=== PATIENT | male | born 1960 | race Caucasian/White ===

== ENCOUNTER 2016-09-03 08:45 | Inpatient (IN) | payer OTHER ==
--- NOTE | 2016-09-03 09:42 | ED ---
Extremity Problem HPI - General Chief complaint: Extremity Problem,Nontraumatic Stated complaint: left leg swelling, sent by [facility] Time Seen by Provider: 09/03/16 08:58 Source: patient, RN notes reviewed Mode of arrival: ambulatory Limitations: no limitations - History of Present Illness Initial comments: 56-year-old male present emergency Department chief complaint left leg swelling , redness. Patient states it started a few days ago has progressively worsened and rapid basis. Patient states 2 nights ago he did not feel well states that he then went to express bleeding or some redness to his leg and he was given antibiotics, steroids. Patient states he woke up today and has increased tremendously along with some streaking redness noted until his proximal thigh. Patient states that he felt that he may have just gotten into something but he does not know all of any new contacts to his leg. Patient denies any medication no recent ear infections no recent traveling. Patient has no history of blood clots denies chest pain or shortness of breath. - Related Data Allergies Allergy/AdvReac Type Severity Reaction Status Date / Time No Known Allergies Allergy Verified 09/03/16 08:53 Review of Systems ROS Statement: Those systems with pertinent positive or pertinent negative responses have been documented in the HPI. ROS Other: All systems not noted in ROS Statement are negative. Past Medical History Past Medical History: No Reported History History of Any Multi-Drug Resistant Organisms: None Reported Past Surgical History: Tonsillectomy Past Psychological History: No Psychological Hx Reported Smoking Status: Never smoker Past Alcohol Use History: Rare Past Drug Use History: None Reported General Exam Limitations: no limitations General appearance: alert, in no apparent distress Neck exam: Present: normal inspection. Absent: tenderness, meningismus, lymphadenopathy Respiratory exam: Present: normal lung sounds bilaterally. Absent: respiratory distress, wheezes, rales, rhonchi, stridor Cardiovascular Exam: Present: regular rate, normal rhythm, normal heart sounds. Absent: systolic murmur, diastolic murmur, rubs, gallop, clicks Extremities exam: Present: other (Left leg there is erythematous petechia type rash that is slightly blanchable, pedal pulses are equal bilaterally there is mild warmth with palpation over the area of rash. There is approximately 2 cm with of erythema that extends to the proximal groin on the left with no palpable lymph nodes or tenderness in the groin) Neurological exam: Present: reflexes normal. Absent: motor sensory deficit Skin exam: Present: warm, dry, intact, normal color. Absent: rash Course Vital Signs 09/03/16 09/03/16 08:49 09:25 Temperature 97.1 F L 98.1 F Pulse Rate 107 H 88 Respiratory 18 15 Rate Blood Pressure 130/95 114/65 O2 Sat by Pulse 95 97 Oximetry Medical Decision Making - Medical Decision Making 56-year-old male present emergency department for left leg swelling and redness. There is no evidence acute DVT. Patient does have acute renal failure left leg cellulitis with lymphangitis. Patient be placed on antibiotics and have nephrology consult. Case is discussed with Dr. Purcell. - Lab Data Result diagrams: 09/03/16 09:15 09/03/16 09:15 Lab Results 09/03/16 09/03/16 09/03/16 Range/Units 09:15 09:15 09:15 WBC 10.6 (3.8-10.6) k/uL RBC 4.97 (4.30-5.90) m/uL Hgb 16.1 (13.0-17.5) gm/dL Hct 46.4 (39.0-53.0) % MCV 93.4 (80.0-100.0) fL MCH 32.4 (25.0-35.0) pg MCHC 34.7 (31.0-37.0) g/dL RDW 14.2 (11.5-15.5) % Plt Count 192 (150-450) k/uL Neutrophils % 81 % Lymphocytes % 8 % Monocytes % 6 % Eosinophils % 0 % Basophils % 0 % Neutrophils # 8.6 H (1.3-7.7) k/uL Lymphocytes # 0.9 L (1.0-4.8) k/uL Monocytes # 0.7 (0-1.0) k/uL Eosinophils # 0.0 (0-0.7) k/uL Basophils # 0.0 (0-0.2) k/uL PT (9.0-12.0) sec INR (<1.2) APTT (22.0-30.0) sec Sodium 139 (137-145) mmol/L Potassium 4.2 (3.5-5.1) mmol/L Chloride 103 (98-107) mmol/L Carbon Dioxide 20 L (22-30) mmol/L Anion Gap 16 mmol/L BUN 34 H (9-20) mg/dL Creatinine 2.90 H (0.66-1.25) mg/dL Est GFR (MDRD) Af Amer 27 (>60 ml/min/1.73 sqM) Est GFR (MDRD) Non-Af 22 (>60 ml/min/1.73 sqM) Glucose 102 H (74-99) mg/dL Plasma Lactic Acid Dalton 1.4 (0.7-2.0) mmol/L Calcium 9.4 (8.4-10.2) mg/dL Total Bilirubin 0.7 (0.2-1.3) mg/dL AST 28 (17-59) U/L ALT 39 (21-72) U/L Alkaline Phosphatase 65 (38-126) U/L C-Reactive Protein 180.5 H (<10.0) mg/L Total Protein 7.1 (6.3-8.2) g/dL Albumin 4.1 (3.5-5.0) g/dL 09/03/16 Range/Units 09:15 WBC (3.8-10.6) k/uL RBC (4.30-5.90) m/uL Hgb (13.0-17.5) gm/dL Hct (39.0-53.0) % MCV (80.0-100.0) fL MCH (25.0-35.0) pg MCHC (31.0-37.0) g/dL RDW (11.5-15.5) % Plt Count (150-450) k/uL Neutrophils % % Lymphocytes % % Monocytes % % Eosinophils % % Basophils % % Neutrophils # (1.3-7.7) k/uL Lymphocytes # (1.0-4.8) k/uL Monocytes # (0-1.0) k/uL Eosinophils # (0-0.7) k/uL Basophils # (0-0.2) k/uL PT 10.1 (9.0-12.0) sec INR 1.0 (<1.2) APTT 25.8 (22.0-30.0) sec Sodium (137-145) mmol/L Potassium (3.5-5.1) mmol/L Chloride (98-107) mmol/L Carbon Dioxide (22-30) mmol/L Anion Gap mmol/L BUN (9-20) mg/dL Creatinine (0.66-1.25) mg/dL Est GFR (MDRD) Af Amer (>60 ml/min/1.73 sqM) Est GFR (MDRD) Non-Af (>60 ml/min/1.73 sqM) Glucose (74-99) mg/dL Plasma Lactic Acid Dalton (0.7-2.0) mmol/L Calcium (8.4-10.2) mg/dL Total Bilirubin (0.2-1.3) mg/dL AST (17-59) U/L ALT (21-72) U/L Alkaline Phosphatase (38-126) U/L C-Reactive Protein (<10.0) mg/L Total Protein (6.3-8.2) g/dL Albumin (3.5-5.0) g/dL Disposition Clinical Impression: Left leg cellulitis, Lymphangitis, Acute renal failure Disposition: ADMITTED IP TO THIS [facility] Condition: Fair Referrals: None,Stated [Primary Care Provider] - 1-2 days
[2016-09-03 09:51] LABS: Basophils % (A) 0 %; CH 32.1; CHCM 34.6; Eosinophils % (A) 0 %; HCT 46.4 % (39.0-53.0); HDW 2.58; HGB 16.1 gm/dL (13.0-17.5); Luc # (Auto) 0.43; Luc % (Auto) 4; Lymphocytes # (A) 0.9 k/uL (1.0-4.8); Lymphocytes % (A) 8 %; MCH 32.4 pg (25.0-35.0); MCHC 34.7 g/dL (31.0-37.0); MCV 93.4 fL (80.0-100.0); Mean Platelet Volume 8.8; Monocytes # (A) 0.7 k/uL (0-1.0); Monocytes % (A) 6 %; Neutrophils # (A) 8.6 k/uL (1.3-7.7); Neutrophils % (A) 81 %; RBC 4.97 m/uL (4.30-5.90); RDW 14.2 % (11.5-15.5); WBC 10.6 k/uL (3.8-10.6); WBC (Perox) 10.83
[2016-09-03 10:01] LABS: Calcium 9.4 mg/dL (8.4-10.2); Potassium 4.2 mmol/L (3.5-5.1); Total Bilirubin 0.7 mg/dL (0.2-1.3); Total Protein 7.1 g/dL (6.3-8.2)
[2016-09-03 10:04] LABS: Partial Thromboplastin Time 25.8 sec (22.0-30.0); Prothrombin Time 10.1 sec (9.0-12.0)
[2016-09-03 10:31] LABS: C Reactive Protein 180.5 mg/L (<10.0)
--- NOTE | 2016-09-03 11:04 | US ---
EXAMINATION TYPE: US venous doppler duplex LE LT DATE OF EXAM: 09/03/2016 10:49 AM COMPARISON: NONE CLINICAL HISTORY: Pain. SIDE PERFORMED: Left TECHNIQUE: The lower extremity deep venous system is examined utilizing real time linear array sonog hayes with graded compression, doppler sonography and color-flow sonography. VESSELS IMAGED: External Iliac Vein (EIV) Common Femoral Vein Deep Femoral Vein Greater Saphenous Vein * Femoral Vein Popliteal Vein Small Saphenous Vein * Proximal Calf Veins (* superficial vessels) Grayscale, color doppler, spectral doppler imaging performed of the deep veins of the lower extremity . There is normal flow, compressibility, vascular waveforms . Left Leg: appears negative for DVT IMPRESSION: No evidence for DVT.
[2016-09-03] MEDS ORDERED: ACETAMINOPHEN TAB 325 MG TAB PO PRN (11:13)
[2016-09-03] MEDS ORDERED: HYDROcodone/APAP 5-325MG 1 EACH TAB PO PRN (11:13)
[2016-09-03] MEDS ORDERED: IV VANCOMYCIN PER PHARMACY 1 EACH MISC MISCELLANE PRN (11:15)
[2016-09-03] MEDS ORDERED: VANCOMYCIN 2,000 MG in SODIUM CHLORIDE 0.9% 500 ML IVPB ONE (11:30)
[2016-09-03 16:43] LABS: Prothrombin Time 10.5 sec (9.0-12.0)
--- NOTE | 2016-09-03 17:06 | HP ---
CHIEF COMPLAINT: [id number]-old white male admitted with left leg swelling and redness and cough, congestion. He was brought to the hospital. He was given IV antibiotics and steroids and admitted with bilateral pneumonia due to increased cough, congestion, shortness of breath. He was also found to have acute cholecystitis on abdomen ultrasound. He has also been treated for some kind of foot infection. ALLERGIES: NEGATIVE. REVIEW OF SYSTEMS: Fourteen-point review of systems negative except for what is mentioned above. PAST MEDICAL HISTORY: 1. Diabetes mellitus. 2. Hypertension. 3. COPD. No drug use. Rare alcohol. PAST SURGICAL HISTORY: Tonsillectomy. PHYSICAL EXAM: Temperature 98. Pulse 88 to 107. Respiratory rate 15 to 18. Blood pressure is 130s to 114 over 60s to 90s. Oxygen 95% to 97% on room air. EXAMINATION OF HIS LEFT LEG: There is erythema. There is a petechiae type rash, slightly ( ) pulses are equal. ( ) erythema is possible ( ) on the left with no lymph node, tenderness. Skin otherwise is normal. BUN is 34, creatinine 2.90. ASSESSMENT: 1. Acute leg swelling and cellulitis. DVT is ruled out. 2. Acute renal failure. PLAN: Continue with IV antibiotics, fluid rehydration. Possible prerenal component. Await renal physician's recommendations. MTDD
[2016-09-03 18:38] LABS: Hemoglobin A1C 5.6 % (4.2-6.1)
--- NOTE | 2016-09-04 09:04 | US ---
EXAMINATION TYPE: US renals and bladder DATE OF EXAM: 09/04/2016 COMPARISON: NONE CLINICAL HISTORY: renal insufficiency. Renal insufficiency EXAM MEASUREMENTS: Right Kidney: 12.0 x 5.5 x 4.9 cm Left Kidney: 11.2 x 5.1 x 5.0 cm Right Kidney: 0.7cm echogenic focus midpole Left Kidney: 1.9 x 3.0cm hypoechoic area inferior pole, 1.9cm hypoechoic area superior pole Bladder: not fully distended There is no evidence for hydronephrosis at this point in time. IMPRESSION: 1 echogenic focus right kidney may reflect a nonobstructing calculus. 2. Isoechoic lesions of the left kidney may reflect cysts.
[2016-09-04 09:19] LABS: Basophils % (A) 0 %; CH 31.8; CHCM 34.4; Eosinophils # (A) 0.1 k/uL (0-0.7); Eosinophils % (A) 1 %; HCT 45.2 % (39.0-53.0); HGB 15.2 gm/dL (13.0-17.5); Luc # (Auto) 0.29; Luc % (Auto) 3; Lymphocytes # (A) 1.2 k/uL (1.0-4.8); Lymphocytes % (A) 13 %; MCH 31.4 pg (25.0-35.0); MCHC 33.7 g/dL (31.0-37.0); MCV 93.1 fL (80.0-100.0); Mean Platelet Volume 8.5; Monocytes # (A) 0.6 k/uL (0-1.0); Monocytes % (A) 6 %; Neutrophils # (A) 7.1 k/uL (1.3-7.7); Neutrophils % (A) 77 %; RBC 4.85 m/uL (4.30-5.90); RDW 14.1 % (11.5-15.5); WBC 9.3 k/uL (3.8-10.6); WBC (Perox) 8.98
[2016-09-04 09:39] LABS: Potassium 4.1 mmol/L (3.5-5.1); Total Bilirubin 0.9 mg/dL (0.2-1.3); Total Protein 6.6 g/dL (6.3-8.2)
[2016-09-04] MEDS: SODIUM CHLORIDE 0.9% 1,000 ML IV SCH (11:35)
--- NOTE | 2016-09-04 11:41 | XR ---
EXAMINATION TYPE: XR chest 1V DATE OF EXAM: 09/04/2016 CLINICAL HISTORY: Cough TECHNIQUE: Single frontal view of the chest is obtained. COMPARISON: None FINDINGS: There is no focal air space opacity, pleural effusion, or pneumothorax seen. The cardiac silhouette size is within normal limits. The osseous structures are intact. IMPRESSION: No acute process.
[2016-09-04] MEDS ORDERED: VANCOMYCIN 2,000 MG in SODIUM CHLORIDE 0.9% 500 ML IVPB ONE (12:00)
--- NOTE | 2016-09-04 12:28 | P.GSCN ---
History of Present Illness History of present illness: 56-year-old white male, history of leg comfort and redness of the lower extremity which was sudden in onset there is no history of trauma no history of insect bite Patient went to [facility] and patient was treated with by mouth antibiotic and steroid and sent home his symptoms got worse he came to the emergency room and has been admitted patient put on vancomycin patient also has a creatinine of 2.5 and began of 34 patient is been seen by the nephrology Medical historyof diabetes hypertension Neck supple no bruit appreciated chest clear first and second sound normal Abdomen soft nontender Vascular examination brachial radial femoral dorsal pedis palpable left lower extremity has a redness and tenderness no ischemic ulceration noted Plan is patient is an IV antibiotic we will use Silvadene cream for local application of left lower extremity and compression wrap wrap with leg elevation we'll follow with you Past Medical History Past Medical History: No Reported History Additional Past Medical History / Comment(s): SINUSITIS History of Any Multi-Drug Resistant Organisms: None Reported Past Surgical History: Tonsillectomy Past Anesthesia/Blood Transfusion Reactions: No Reported Reaction Past Psychological History: No Psychological Hx Reported Smoking Status: Never smoker Past Alcohol Use History: Rare Past Drug Use History: None Reported Medications and Allergies Home Medications Medication Instructions Recorded Confirmed Type Acetaminophen [Tylenol Extra 1,000 mg PO DAILY PRN 09/03/16 09/03/16 History Strength] Levofloxacin [Levaquin] 500 mg PO DAILY 09/03/16 09/03/16 History predniSONE 10 mg PO DAILY 09/03/16 09/03/16 History Allergies Allergy/AdvReac Type Severity Reaction Status Date / Time No Known Allergies Allergy Verified 09/03/16 11:35 Surgical - Exam Vital Signs Temp Pulse Resp BP Pulse Ox 97.1 F L 107 H 18 130/95 95 09/03/16 08:49 09/03/16 08:49 09/03/16 08:49 09/03/16 08:49 09/03/16 08:49 Results - Labs 09/04/16 09:06 09/04/16 09:06 Abnormal Lab Results - Last 24 Hours (Table) 09/04/16 Range/Units 09:06 BUN 29 H (9-20) mg/dL Creatinine 2.30 H (0.66-1.25) mg/dL Microbiology - Last 24 Hours (Table) 09/03/16 09:15 Blood Culture - Preliminary Blood No Growth after 24 hours Diabetes panel 09/03/16 09/04/16 Range/Units 16:12 09:06 Sodium 139 (137-145) mmol/L Potassium 4.1 (3.5-5.1) mmol/L Chloride 106 (98-107) mmol/L Carbon Dioxide 22 (22-30) mmol/L BUN 29 H (9-20) mg/dL Creatinine 2.30 H (0.66-1.25) mg/dL Glucose 86 (74-99) mg/dL Hemoglobin A1c 5.6 (4.2-6.1) % Calcium 9.0 (8.4-10.2) mg/dL AST 28 (17-59) U/L ALT 36 (21-72) U/L Alkaline Phosphatase 57 (38-126) U/L Total Protein 6.6 (6.3-8.2) g/dL Albumin 3.7 (3.5-5.0) g/dL Thyroid panel 09/03/16 Range/Units 16:12 TSH 1.270 (0.465-4.680) mIU/L Calcium panel 09/04/16 Range/Units 09:06 Calcium 9.0 (8.4-10.2) mg/dL Albumin 3.7 (3.5-5.0) g/dL Pituitary panel 09/03/16 09/04/16 Range/Units 16:12 09:06 Sodium 139 (137-145) mmol/L Potassium 4.1 (3.5-5.1) mmol/L Chloride 106 (98-107) mmol/L Carbon Dioxide 22 (22-30) mmol/L BUN 29 H (9-20) mg/dL Creatinine 2.30 H (0.66-1.25) mg/dL Glucose 86 (74-99) mg/dL Calcium 9.0 (8.4-10.2) mg/dL TSH 1.270 (0.465-4.680) mIU/L Adrenal panel 09/04/16 Range/Units 09:06 Sodium 139 (137-145) mmol/L Potassium 4.1 (3.5-5.1) mmol/L Chloride 106 (98-107) mmol/L Carbon Dioxide 22 (22-30) mmol/L BUN 29 H (9-20) mg/dL Creatinine 2.30 H (0.66-1.25) mg/dL Glucose 86 (74-99) mg/dL Calcium 9.0 (8.4-10.2) mg/dL Total Bilirubin 0.9 (0.2-1.3) mg/dL AST 28 (17-59) U/L ALT 36 (21-72) U/L Alkaline Phosphatase 57 (38-126) U/L Total Protein 6.6 (6.3-8.2) g/dL Albumin 3.7 (3.5-5.0) g/dL
--- NOTE | 2016-09-04 12:39 | CONS ---
REASON FOR CONSULT: Renal failure. HISTORY OF PRESENT ILLNESS: The patient is a 56 year old male who was admitted to the hospital with complaints of pain, redness and swelling in his left lower extremity which acutely started to worsen over the course of two to three days. The patient denies any prior history of kidney disease. He stated that his urine output was low prior to admission. His creatinine was noted to be 2.9 mg/ DL. We do not have any other labs available for comparison. The patient denies use of nonsteroid antiinflammatory agents prior to his hospitalization. He did have an ultrasound which did not show any evidence of obstruction. Social history is negative for smoking, drug abuse or alcohol abuse. PAST MEDICAL HISTORY: Hypertension is listed. The patient was not on any anti- hypertensive medications prior to admission. ALLERGIES: None. REVIEW OF SYSTEMS: As per HPI. Other systems negative. On examination, the patient is comfortable, awake, he is alert and oriented times three. Not in any acute distress. Blood pressure 133/72. Heart rate 103 per minute. He is afebrile. Examination of the heart S1, S2. Examination of the lungs bilateral breath sounds are heard. Abdomen is soft, nontender. Examination of the lower extremities shows redness and swelling in the left lower extremity which is marked and is not increasing from previous marking. Venous Doppler were negative for DVT. [employer] exam grossly intact. Labs shows sodium 139, potassium 4.1, BUN 29, serum creatinine 2.3, hemoglobin 15.2 gmDL. Vancomycin level was 8.3. ASSESSMENT: 1. Acute kidney injury appears to be acute tubular necrosis. The patient was not on any nonsteroidal antiinflammatory agents prior to admission. We will check a urinalysis. There is no evidence of obstructive uropathy. He is currently nonoliguric and his renal function seems to be improving. I will also start the patient on gentle IV hydration and repeat labs in the a.m. 2. Cellulitis in the left lower extremity, maintained on IV antibiotics. PLAN: Continue IV fluids, check urinalysis, repeat labs in the a.m. Continue to avoid nephrotoxic agents. Thank you for this consultation. We will follow this patient along with you. RAISA
[2016-09-04 14:05] LABS: Appearance,Urine Cloudy (Clear); Bacteria,Urine Rare /hpf; Bilirubin,Urine Negative (Negative); Glucose,Urine (UA) Negative (Negative); Ketones,Urine 1+ (Negative); Leukocyte Esterase,Urine Negative (Negative); Mucus,Urine Rare /hpf; Nitrite,Urine Negative (Negative); PH, Urine 5.5 (5.0-8.0); Particle Count 2762; Protein,Urine Trace (Negative); RBC,Urine 2 /hpf (0-5); Specific Gravity,Urine 1.011 (1.001-1.035); Squamous Epithelial Cell,Urine <1 /hpf (0-4); UA Billing (MACRO vs. MICRO) MICRO; Urobilinogen,Urine <2.0 mg/dL (<2.0); WBC,Urine 2 /hpf (0-5)
[2016-09-04] MEDS: ceFAZolin 2 GM in SODIUM CHLORIDE 0.9% 100 ML IVPB SCH ×2 (18:01→23:54)
[2016-09-05] MEDS: SODIUM CHLORIDE 0.9% 1,000 ML IV SCH ×2 (03:25→20:52)
[2016-09-05] MEDS: ceFAZolin 2 GM in SODIUM CHLORIDE 0.9% 100 ML IVPB SCH ×3 (08:35→23:26)
[2016-09-05 08:37] LABS: Calcium 8.9 mg/dL (8.4-10.2); Potassium 4.2 mmol/L (3.5-5.1)
--- NOTE | 2016-09-05 09:46 | CONS ---
DATE OF CONSULTATION: 09/04/2016 REASON FOR CONSULTATION: Left lower extremity cellulitis. HISTORY OF PRESENT ILLNESS: The patient is a 56 year old male who apparently did develop swelling and redness of his left leg on . The patient denied any current history of any trauma. No skin breakdown. No drainage. The patient noticed the swelling and the redness on the left leg for which the patient did go to [facility]. The patient did receive a dose of Rocephin and discharged home on oral Levaquin and Prednisone. The patient said he went to work the same night as he works midnights. The next morning, noticed the leg to be more swelling. More red. Pain is dull, 3 to 4 out of 10 and no radiation. No skin breakdown. She has some chills but no high grade fever. She went back to the urgent care. The patient has been evaluated and told patient needs to go to the hospital. The patient was evaluated by the ER physician. The patient did have lower extremity doppler that was negative for DVT. The patient was started on Vancomycin and I was asked to see the patient for further recommendations regarding antibiotic therapy. So the patient has been admitted to the hospital. No high grade fever has been noticed. The patient did have a normal white count of 10.6 and elevated creatinine of 2.90, though down to 2.30 today. REVIEW OF SYSTEMS Constitutional: Positive for weakness and some chills. EYES: No complaint. ENT: No complaint. Respiratory: No complaint. Cardiovascular: No complaint. Genitourinary: No complaint. Gastrointestinal: No complaint. Musculoskeletal: As per HPI. Integumentary: As per HPI. Psychological: No complaint. Endocrine: No complaint. Neurological: No complaint. Past medical history significant for no major illnesses. Past surgical history: Tonsillectomy. SOCIAL HISTORY: Denies history of smoking, drinking or drug use. FAMILY HISTORY: No pertinent findings were noticed. ALLERGIES: No known drug allergies. Medications currently include the patient is on: 1. Vancomycin, pharmacy to dose. 2. IV fluids. 3. Silvadene cream. 4. [place]. 5. Tylenol. On examination, blood pressure is 145/67 with a pulse of 63. Temperature 97.8. He is 99% on room air. General description is a middle age male lying in bed in no distress. No tachypnea or accessory muscles of respiration use. HEENT: Examination shows no pallor or scleral icterus. Oral mucous membranes dry. NECK: Trachea is central. No thyromegaly. LUNGS: Unlabored breathing. Clear to auscultation anteriorly. No wheeze or crackles. HEART: S1, S2 regular rate and rhythm. ABDOMEN: Soft, no tenderness. No guarding or rigidity. EXTREMITIES: Left leg with swelling and redness, slightly warm to touch. No skin breakdown. No evidence of athlete's foot. NEUROLOGICALLY: The patient is awake, alert and oriented times three. Mood and affect normal. LABS: Hemoglobin 15.1, white count 9.6 with a BUN 29, creatinine 2.30. Blood cultures were obtained which are currently pending. DIAGNOSTIC IMPRESSION AND PLAN: Patient with left leg lower extremity cellulitis with diffuse swelling and redness and rapid progression more likely pointing towards Streptococcal infection. The patient failing outpatient po Levaquin therapy, now admitted to the hospital and did have evidence of renal insufficiency and high risk of nephrotoxicity from Vancomycin. PLAN: 1. Discontinue the Vancomycin. 2. We will start the patient on Cefazolin two gm every eight hours. 3. Michael the area of the redness. 4. Pierre wraps from just above toes to just below the knee. 5. We will follow up on clinical condition and cultures to further adjust medication if needed. Thank you for this consultation. We will follow this patient along with you. RAISA
--- NOTE | 2016-09-05 11:03 | P.PN ---
Subjective Patient is seen in follow-up for acute kidney injury. Creatinine was 2.9 on admission and is down to 1.7 today. Patient's currently being treated for left lower extremity cellulitis. He denies any chest pain or shortness of breath. No vomiting or diarrhea. Oral intake is good. Admits to good urine output. Vital signs are stable. General: The patient appeared well nourished and normally developed. HEENT: Head exam is unremarkable. Neck is without jugular venous distension. LUNGS: Lungs are clear to auscultation and percussion. Breath sounds decreased. HEART: Rate and Rhythm are regular. First and second heart sounds normal. No murmurs, rubs or gallops. ABDOMEN: Abdominal exam reveals normal bowel sounds. Non-tender and non- distended. No evidence of peritonitis. EXTREMITITES: No clubbing, cyanosis, or edema. Objective - Vital Signs Vital signs: Vital Signs Temp 97.0 F L 09/05/16 07:00 Pulse 85 09/05/16 07:00 Resp 18 09/05/16 07:00 BP 142/74 09/05/16 07:00 Pulse Ox 95 09/05/16 07:00 Intake & Output 09/04/16 09/05/16 09/05/16 18:59 06:59 18:59 Intake Total 1000 Balance 1000 Intake: Intake, IV Titration 1000 Amount Sodium Chloride 0.9% 1, 300 000 ml @ 60 mls/hr IV . [id number] [facility] Rx#:[id number] Vancomycin 2,000 mg In 500 Sodium Chloride 0.9% 500 ml @ 167 mls/hr IVPB ONCE ONE Rx#:[id number] ceFAZolin 2 gm In Sodium 200 Chloride 0.9% 100 ml @ 100 mls/hr IVPB Q8HR [facility] Rx#:[id number] Other: # Voids 3 1 # Bowel Movements 1 - Labs CBC & Chem 7: 09/04/16 09:06 09/05/16 08:01 Labs: Abnormal Lab Results - Last 24 Hours (Table) 09/04/16 09/05/16 Range/Units Unknown 08:01 Carbon Dioxide 20 L (22-30) mmol/L BUN 21 H (9-20) mg/dL Creatinine 1.70 H (0.66-1.25) mg/dL Urine Protein Trace H (Negative) Urine Ketones 1+ H (Negative) Urine Blood Moderate H (Negative) Urine Bacteria Rare H (None) /hpf Urine Mucus Rare H (None) /hpf Microbiology - Last 24 Hours (Table) 09/03/16 09:15 Blood Culture - Preliminary Blood No Growth after 24 hours Assessment and Plan Plan: Assessment: #1. Nonoliguric acute kidney injury secondary to ATN from infectious process. Renal function improving with creatinine around 1.7 today. Urinalysis is quite benign. No evidence of obstructive uropathy. Next line #2. Left lower extremity cellulitis. #3. Metabolic acidosis secondary to IV fluids. Plan: Continue normal saline to be run at 60 mL an hour. Antibiotics per infectious disease recommendations. Encouraged oral intake. Repeat electrolyzes the morning.
--- NOTE | 2016-09-05 12:19 | PN ---
SUBJECTIVE: This is a 56-year-old white male with acute renal failure. Creatinine went to 2.9 to 2.3 overnight. Cellulitis is slightly improved of the right groin, left inner thigh, left lower leg. He feels much better from a clinical standpoint. His dehydration is improving with IV fluids. Remains on IV antibiotics at this time. CARDIOVASCULAR: S1, S2. Lung are clear. INTEGUMENT: As mentioned above. GI: Soft. ASSESSMENT: 1. Acute renal failure, improving. 2. Acute prerenal renal failure. 3. Acute cellulitis. Continue with IV antibiotics, IV fluids. Please see in the next 24 to 48 hours , recheck the electrolytes in the morning and creatinine and IV antibiotics. MTDD
--- NOTE | 2016-09-05 18:03 | P.PN ---
Progress Note - Text 56-year-old gentleman, history of cellulitis lower extremity no history of deep vein thrombosis patient IV antibiotic Silvadene cream with compression wrap cellulitis has not improve still there is a redness of the lower extremity we will have a dermatology consult if patient has vessel colitis versus cellulitis continue with present antibiotic and local wound care
[2016-09-06] MEDS: CLINDAMYCIN 900 MG in DEXTROSE 5% IN WATER 50 ML IVPB SCH ×6 (01:00→16:46)
[2016-09-06 07:38] VITALS: RESP 16
[2016-09-06] MEDS: ceFAZolin 2 GM in SODIUM CHLORIDE 0.9% 100 ML IVPB SCH ×3 (09:24→23:29)
[2016-09-06 09:25] LABS: Calcium 8.9 mg/dL (8.4-10.2); Potassium 3.9 mmol/L (3.5-5.1)
--- NOTE | 2016-09-06 09:45 | PN ---
DATE OF SERVICE: 09/05/2016 Reason for followup is left lower extremity cellulitis. INTERVAL HISTORY: The patient is afebrile. He is breathing comfortably. He denies significant pain to the left leg area. Overall drainage and swelling has slightly improved. Patient denies any significant chest pain, shortness of breath or cough. No abdominal pain or any diarrhea. On examination, his blood pressure is 131/81 with a pulse of 88, temperature is 97.2. He is 93% on room air. General description is a middle age male, lying in bed, in no distress. RESPIRATORY SYSTEM: Unlabored breathing. Clear to auscultation anteriorly. HEART: S1 and S2. Regular rate and rhythm. ABDOMEN: Soft. No tenderness. Left leg swelling has minimally improved. LABS: His BUN is 21. Creatinine is 1.70. DIAGNOSTIC IMPRESSION AND PLAN: Patient with left lower extremity cellulitis with diffuse swelling and redness likely streptococcal disease. There is slight improvement on cefazolin. Clindamycin has been added for added benefit. Continue with the cefazolin and evaluate the patient tomorrow. Continue supportive care. [facility]
--- NOTE | 2016-09-06 11:21 | P.PN ---
Subjective Patient is seen in follow-up for acute kidney injury. Creatinine was 2.9 on admission and is down to 1.6 today. Unclear as to what his baseline renal function is. Patient's currently being treated for left lower extremity cellulitis. States her edema is improving. He denies any chest pain or shortness of breath. No vomiting or diarrhea. Oral intake is good. Admits to good urine output. Vital signs are stable. General: The patient appeared well nourished and normally developed. HEENT: Head exam is unremarkable. Neck is without jugular venous distension. LUNGS: Lungs are clear to auscultation and percussion. Breath sounds decreased. HEART: Rate and Rhythm are regular. First and second heart sounds normal. No murmurs, rubs or gallops. ABDOMEN: Abdominal exam reveals normal bowel sounds. Non-tender and non- distended. No evidence of peritonitis. EXTREMITITES: No clubbing, cyanosis, or edema. Objective - Vital Signs Vital signs: Vital Signs Temp 97.0 F L 09/06/16 07:00 Pulse 89 09/06/16 07:00 Resp 16 09/06/16 07:00 BP 133/74 09/06/16 07:00 Pulse Ox 96 09/06/16 07:00 Intake & Output 09/05/16 09/06/16 09/06/16 18:59 06:59 18:59 Intake Total 100 Balance 100 Intake: Oral 100 Other: # Voids 3 1 - Labs CBC & Chem 7: 09/04/16 09:06 09/06/16 08:45 Labs: Abnormal Lab Results - Last 24 Hours (Table) 09/06/16 Range/Units 08:45 Chloride 108 H (98-107) mmol/L Creatinine 1.61 H (0.66-1.25) mg/dL Microbiology - Last 24 Hours (Table) 09/03/16 09:15 Blood Culture - Preliminary Blood No Growth after 48 hours Assessment and Plan Plan: Assessment: #1. Nonoliguric acute kidney injury secondary to ATN from infectious process. Renal function improving with creatinine at 1.6 today. Urinalysis is quite benign. No evidence of obstructive uropathy. #2. Left lower extremity cellulitis. #3. Metabolic acidosis secondary to IV fluids. Improving. Plan: Continue normal saline to be run at 60 mL an hour. Antibiotics per infectious disease recommendations. Encouraged oral intake. Repeat electrolyzes the morning.
--- NOTE | 2016-09-06 11:46 | PN ---
SUBJECTIVE: A 56-year-old white male with left leg cellulitis, possible vasculitis of the left lower leg. Patient continues on IV antibiotics, renal insufficiency is improved from 2.7 to 2.3 now down to 1.75. CARDIOVASCULAR: S1, S2. Lungs are clear. GI is soft. PSYCH: Fair mood and affect. He has a chronic cough secondary to ( ), he wants no treatment for. Integument shows left leg redness, streaking up to the middle inner groin down to the knee and the lower leg shows palpable purpura. ASSESSMENT: 1. Lymphadenitis, left leg cellulitis. 2. Acute on chronic renal failure improving, continue with IV cefazolin. 3. Prerenal renal failure, improving. Please see further orders. MTDD
--- NOTE | 2016-09-06 14:30 | P.PN ---
Progress Note - Text 56 old white male, patient came with cellulitis of left lower extremity patient is on IV antibiotic and we started her on Silvadene cream today swelling and redness is less and patient is not in pain plan is continue with the local wound care and IV antibiotic patient is improving
[2016-09-06] MEDS: SODIUM CHLORIDE 0.9% 1,000 ML IV SCH (16:45)
--- NOTE | 2016-09-06 18:34 | PN ---
DATE OF SERVICE: 09/06/16 REASON FOR FOLLOW UP: Left lower extremity cellulitis. INTERVAL HISTORY: The patient is afebrile. He is feeling better. Left leg swelling and redness has improved compared to yesterday. There is no significant pain. The patient denies significant chest pain, shortness of breath, very minimal cough. No abdominal pain or any diarrhea. On examination, blood pressure 133/74, pulse 80, temperature 97, he is 96% on room air. General description is a middle age male lying in the bed, in no distress. Respiratory: Unlabored breathing. Clear to auscultation anteriorly. Heart: S1, S2 regular rate and rhythm. Abdomen soft, no tenderness. Left leg overall swelling and redness has improved. Labs: BUN 16, creatinine 1.61. DIAGNOSTIC IMPRESSION AND PLAN: 1. Patient with acute left lower extremity cellulitis with diffuse swelling and redness, likely streptococcal disease, did show overall improvement. Clindamycin will be continued. Reevaluate the patient tomorrow to determine discharge antibiotics. 2. Continue supportive care. RAISA
[2016-09-07] MEDS: CLINDAMYCIN 900 MG in DEXTROSE 5% IN WATER 50 ML IVPB SCH ×8 (00:51→23:14)
[2016-09-07] MEDS: SODIUM CHLORIDE 0.9% 1,000 ML IV SCH (08:39)
[2016-09-07] MEDS: ceFAZolin 2 GM in SODIUM CHLORIDE 0.9% 100 ML IVPB SCH ×2 (10:05→18:11)
[2016-09-07 10:56] LABS: Calcium 8.7 mg/dL (8.4-10.2); Potassium 4.4 mmol/L (3.5-5.1); Total Bilirubin 0.4 mg/dL (0.2-1.3); Total Protein 5.7 g/dL (6.3-8.2)
--- NOTE | 2016-09-07 11:10 | P.PN ---
Subjective Patient is seen in follow-up for acute kidney injury. Creatinine was 2.9 on admission and was down to 1.6 as of yesterday. Unclear as to what his baseline renal function is. Patient's currently being treated for left lower extremity cellulitis. States erythema is improving. He denies any chest pain or shortness of breath. No vomiting or diarrhea. Oral intake is good. Admits to good urine output. No active complaints at this time. Vital signs are stable. General: The patient appeared well nourished and normally developed. HEENT: Head exam is unremarkable. Neck is without jugular venous distension. LUNGS: Lungs are clear to auscultation and percussion. Breath sounds decreased. HEART: Rate and Rhythm are regular. First and second heart sounds normal. No murmurs, rubs or gallops. ABDOMEN: Abdominal exam reveals normal bowel sounds. Non-tender and non- distended. No evidence of peritonitis. EXTREMITITES: No clubbing, cyanosis, or edema. Objective - Vital Signs Vital signs: Vital Signs Temp 97.2 F L 09/07/16 07:00 Pulse 82 09/07/16 07:00 Resp 16 09/07/16 07:00 BP 161/90 09/07/16 07:00 Pulse Ox 96 09/07/16 07:00 Intake & Output 09/06/16 09/07/16 09/07/16 18:59 06:59 18:59 Intake Total 600 Balance 600 Intake: Oral 600 Other: # Voids 1 1 - Labs CBC & Chem 7: 09/04/16 09:06 09/06/16 08:45 Labs: Microbiology - Last 24 Hours (Table) 09/03/16 09:15 Blood Culture - Preliminary Blood No Growth after 72 hours Assessment and Plan Plan: Assessment: #1. Nonoliguric acute kidney injury secondary to ATN from infectious process. Renal function improving with creatinine at 1.6 as of yesterday. Urinalysis is quite benign. No evidence of obstructive uropathy. #2. Left lower extremity cellulitis. #3. Metabolic acidosis secondary to IV fluids. Improving. Plan: Hep-Lock IV fluids. Antibiotics per infectious disease recommendations. Encouraged oral intake. Repeat electrolytes the morning.
--- NOTE | 2016-09-07 11:28 | PN ---
SUBJECTIVE: This is a 56-year-old white male with cellulitis of the left leg, lymphangitis and acute renal failure. Creatinine is down to 1.7 from 2.3. CARDIOVASCULAR: S1/S2. LUNGS: Clear. INTEGUMENT: Shows left inner thigh redness and swelling with decreasing, left lower leg redness and swelling has improved. ASSESSMENT: 1. Cellulitis, left leg. 2. Lymphangitis. 3. Acute renal failure. All improving clinically. Continue with IV Kefzol 500 mg q8, fluid rehydration. Possible discharge home in the next 48 hours. MTDD
--- NOTE | 2016-09-07 20:04 | PN ---
DATE OF SERVICE: 09/07/2016 REASON FOR FOLLOWUP: Left lower extremity cellulitis. INTERVAL HISTORY: The patient is afebrile. He is feeling better. Left leg swelling and redness as well as pain have improved compared to yesterday. The patient denies significant chest pain. No shortness of breath or cough and no abdominal pain or any diarrhea. On examination, blood pressure is 161/90 with a pulse of 82, temperature 97.2. He is 96% on room air. General description is a middle-aged male lying bed in no distress. RESPIRATORY SYSTEM: Unlabored breathing. Clear to auscultation anteriorly. HEART: S1, S2. Regular rate and rhythm. ABDOMEN: Soft. No tenderness. LEFT LEG: Overall swelling and redness have improved. LABS: BUN of 14 with a creatinine 1.64. DIAGNOSTIC IMPRESSION AND PLAN: Patient with acute left lower extremity cellulitis with diffuse swelling and redness, likely streptococcal disease. Patient seems to be showing clinical improvement slowly. He will continue on the cefazolin and clindamycin for another 24 hours, and if the patient does show overall improvement, hopefully he will be able to finish therapy with oral antibiotics. Continue supportive care. RAISA
[2016-09-08] MEDS: ceFAZolin 2 GM in SODIUM CHLORIDE 0.9% 100 ML IVPB SCH ×4 (07:47→17:59)
[2016-09-08 08:02] VITALS: TEMP 97.3
[2016-09-08 08:48] LABS: Calcium 8.9 mg/dL (8.4-10.2); Potassium 4.4 mmol/L (3.5-5.1)
[2016-09-08] MEDS: CLINDAMYCIN 900 MG in DEXTROSE 5% IN WATER 50 ML IVPB SCH ×4 (08:54→17:19)
--- NOTE | 2016-09-08 10:18 | P.PN ---
Subjective Patient is seen in follow-up for acute kidney injury. Creatinine was 2.9 on admission and down to 1.47 today. Unclear as to what his baseline renal function is. Patient's currently being treated for left lower extremity cellulitis. States erythema is improving. He denies any chest pain or shortness of breath. No vomiting or diarrhea. Oral intake is good. Admits to good urine output. No active complaints at this time. Vital signs are stable. General: The patient appeared well nourished and normally developed. HEENT: Head exam is unremarkable. Neck is without jugular venous distension. LUNGS: Lungs are clear to auscultation and percussion. Breath sounds decreased. HEART: Rate and Rhythm are regular. First and second heart sounds normal. No murmurs, rubs or gallops. ABDOMEN: Abdominal exam reveals normal bowel sounds. Non-tender and non- distended. No evidence of peritonitis. EXTREMITITES: No clubbing, cyanosis, or edema. Objective - Vital Signs Vital signs: Vital Signs Temp 97.3 F L 09/08/16 07:00 Pulse 90 09/08/16 07:00 Resp 16 09/08/16 07:00 BP 161/88 09/08/16 07:00 Pulse Ox 94 L 09/08/16 07:00 Intake & Output 09/07/16 09/08/16 09/08/16 18:59 06:59 18:59 Intake Total 2400 200 Balance 2400 200 Intake: Oral 2400 200 Other: # Voids 2 1 - Labs CBC & Chem 7: 09/04/16 09:06 09/08/16 08:00 Labs: Abnormal Lab Results - Last 24 Hours (Table) 09/07/16 09/08/16 Range/Units 09:33 08:00 Creatinine 1.64 H 1.47 H (0.66-1.25) mg/dL Glucose 102 H (74-99) mg/dL Total Protein 5.7 L (6.3-8.2) g/dL Albumin 3.1 L (3.5-5.0) g/dL Microbiology - Last 24 Hours (Table) 09/03/16 09:15 Blood Culture - Preliminary Blood No Growth after 96 hours Assessment and Plan Plan: Assessment: #1. Nonoliguric acute kidney injury secondary to ATN from infectious process. Renal function improving with creatinine down to 1.47 today. Urinalysis is quite benign. No evidence of obstructive uropathy. #2. Left lower extremity cellulitis. #3. Metabolic acidosis secondary to IV fluids. Resolved. Plan: Remains off all IV fluids. Antibiotics per infectious disease recommendations. Encouraged oral intake. Stable to be discharged home from nephrology standpoint. Will need to follow- up as an outpatient in the next 2-3 weeks.
--- NOTE | 2016-09-08 11:52 | PN ---
SUBJECTIVE: A 56-year-old white male with left leg cellulitis, improving. No chest pain or shortness of breath. Has chronic cough due to allergies. Blood pressure 160/90. Temp 97.2. Pulse 70 to 82. O2, 96% on room air. LUNGS: Show clear. CARDIOVASCULAR: S1 and S2. ABDOMEN: Soft, nontender. EXTREMITIES: No cyanosis, clubbing or edema. Left lower ( ) extremity ( ) likely streptococcal. Slow clinical improvement. Continue cefazolin, clindamycin for 24 hours and then possibly switch to oral antibiotics and discharge home. MTDD
[2016-09-08 14:20] VITALS: BP 146/86; PULSE 91
--- NOTE | 2016-09-08 16:08 | PN ---
DATE OF SERVICE: 09/08/16 REASON FOR FOLLOW UP: Left lower extremity cellulitis. INTERVAL HISTORY: The patient is afebrile. Feeling better. Breathing comfortably. Denies significant chest pain. No shortness of breath or cough. No abdominal pain. no pain left leg area. On examination, blood pressure 146/86, pulse 91, temperature 97.3, she is 98% on room air. General description is an elderly male lying in the bed, in no distress. Respiratory: Unlabored breathing. Clear to auscultation anteirorly. Heart: S1, S2 regular rate and rhythm. Abdomen soft, no tenderness. Left leg swelling and redness has improved. LABS: BUN 14, creatinine 1.47. DIAGNOSTIC IMPRESSION AND PLAN: Patient with acute left lower extremity cellulitis with diffuse swelling and redness, likely streptococcal disease. The patient did show overall improvement , plan to finish therapy with po Keflex. Script has been sent to the pharmacy with outpatient follow-up. The patient needs compressive stockings to keep the swelling down. MTDD
== END 2016-09-08 20:00 | disposition home or self-care (01) | DRG 602 ==
LOC: EC 08:45 → 4MS4W 11:41
PROVIDERS: ADMIT Family Medicine; ATTEND Family Medicine
DX: L03.116 Cellulitis of left lower limb (principal); N17.0 Acute kidney failure with tubular necrosis; E87.2 Acidosis; E86.0 Dehydration; R68.83 Chills (without fever); B95.5 Unspecified streptococcus as the cause of diseases classified elsewhere; I88.9 Nonspecific lymphadenitis, unspecified; R23.3 Spontaneous ecchymoses; Z86.19 Personal history of other infectious and parasitic diseases; Z87.09 Personal history of other diseases of the respiratory system
CPT/HCPCS: 36415; 71010; 76770; 80048; 80053; 80202; 81001; 83036; 83605; 84443; 85025; 85610; 85730; 86038; 86140; 87040; 99285

== ENCOUNTER 2020-07-06 08:10 | Inpatient (IN) | payer OTHER ==
[2020-07-06] MEDS ORDERED: VANCOMYCIN IV PER PHARMACY 1 EACH MISC MISCELLANE PRN (08:36)
[2020-07-06] MEDS ORDERED: SODIUM CHLORIDE 0.9% 1,000 ML IV ONE ×2 (08:37→20:09)
[2020-07-06] MEDS ORDERED: cefTRIAXone IN SWFI 1,000 MG/10 ML SYRINGE IVP SCH (08:44)
--- NOTE | 2020-07-06 08:44 | ED ---
General Adult HPI - General Chief complaint: Skin/Abscess/Foreign Body Stated complaint: leg infection Time Seen by Provider: 07/06/20 08:19 Source: patient, RN notes reviewed, old records reviewed Mode of arrival: ambulatory Limitations: no limitations - History of Present Illness Initial comments: 59-year-old male with left leg pain, swelling and redness. 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 This reportedly progressed very rapidly. He denies fever. Denies chest pain or dyspnea. - Related Data Home Medications Medication Instructions Recorded Confirmed No Known Home Medications 07/06/20 07/06/20 Allergies Allergy/AdvReac Type Severity Reaction Status Date / Time Milk Containing Products AdvReac SINUS Verified 07/06/20 09:24 [Dairy] CONGESTION Review of Systems ROS Statement: Those systems with pertinent positive or pertinent negative responses have been documented in the HPI. ROS Other: All systems not noted in ROS Statement are negative. Past Medical History Past Medical History: No Reported History Additional Past Medical History / Comment(s): SINUSITIS, cellulitis left leg History of Any Multi-Drug Resistant Organisms: None Reported Past Surgical History: Tonsillectomy Past Anesthesia/Blood Transfusion Reactions: No Reported Reaction Past Psychological History: No Psychological Hx Reported Smoking Status: Never smoker Past Alcohol Use History: Rare Past Drug Use History: None Reported General Exam Limitations: no limitations General appearance: alert, in no apparent distress Head exam: Present: atraumatic, normocephalic Eye exam: Present: normal appearance, PERRL ENT exam: Present: normal exam Neck exam: Present: normal inspection. Absent: tenderness, meningismus Respiratory exam: Present: normal lung sounds bilaterally. Absent: respiratory distress, wheezes Cardiovascular Exam: Present: normal rhythm, tachycardia GI/Abdominal exam: Present: soft. Absent: distended, tenderness, guarding Extremities exam: Present: normal capillary refill, other (Large area anterior left lower leg, erythema, warmth, tenderness to palpation, no crepitus, no fluctuance. Surrounding petechiae.). Absent: calf tenderness Neurological exam: Present: alert, oriented X3, CN II-XII intact. Absent: motor sensory deficit Psychiatric exam: Present: normal affect, normal mood Skin exam: Present: warm, dry, erythema Course Vital Signs 05/24/21 05/24/21 05/24/21 08:12 08:30 09:32 Temperature 98.7 F Pulse Rate 146 H 132 H 122 H Respiratory 18 18 18 Rate Blood Pressure 143/102 114/70 133/93 O2 Sat by Pulse 96 96 97 Oximetry EKG Findings - EKG Comments: EKG Findings:: EKG: Sinus tachycardia, left atrial enlargement, rate of 145, OK interval 132, QRS duration 82, QTC [address] segment elevation. Medical Decision Making - Medical Decision Making 59-year-old male with a rapidly progressing skin soft tissue infection of the left lower leg. The border is demarcated with a skin marker. Patient has been started on ceftriaxone, vancomycin, and clindamycin in the emergency department. He has a mild leukocytosis of 12.9. Patient has CK D with baseline creatinine. His lactic acid is 3.1. I did discuss case both with Dr. Rutherford and Dr. Fredi ortega for infectious disease. Gen. surgery placed on consult. - Lab Data Result diagrams: 07/06/20 08:49 07/06/20 08:49 Lab Results 07/06/20 07/06/20 07/06/20 Range/Units 08:49 08:49 08:49 WBC 12.8 H (3.8-10.6) k/uL RBC 5.27 (4.30-5.90) m/uL Hgb 17.6 H (13.0-17.5) gm/dL Hct 50.5 (39.0-53.0) % MCV 95.8 (80.0-100.0) fL MCH 33.5 (25.0-35.0) pg MCHC 34.9 (31.0-37.0) g/dL RDW 13.0 (11.5-15.5) % Plt Count 184 (150-450) k/uL MPV 8.3 PT 10.7 (9.0-12.0) sec INR 1.0 (<1.2) APTT 22.7 (22.0-30.0) sec Sodium 135 L (137-145) mmol/L Potassium 4.1 (3.5-5.1) mmol/L Chloride 107 (98-107) mmol/L Carbon Dioxide 16 L (22-30) mmol/L Anion Gap 12 mmol/L BUN 16 (9-20) mg/dL Creatinine 1.74 H (0.66-1.25) mg/dL Est GFR (CKD-EPI)AfAm 48 (>60 ml/min/1.73 sqM) Est GFR (CKD-EPI)NonAf 41 (>60 ml/min/1.73 sqM) Glucose 144 H (74-99) mg/dL Calcium 9.5 (8.4-10.2) mg/dL Magnesium 1.4 L (1.6-2.3) mg/dL Total Bilirubin 1.4 H (0.2-1.3) mg/dL AST 49 (17-59) U/L ALT 44 (4-49) U/L Alkaline Phosphatase 71 (38-126) U/L Total Protein 7.0 (6.3-8.2) g/dL Albumin 4.3 (3.5-5.0) g/dL Disposition Clinical Impression: Erysipelas, Cellulitis, Left leg cellulitis Disposition: ADMITTED IP TO THIS [facility] Condition: Stable Is patient prescribed a controlled substance at d/c from ED?: No Referrals: None,Stated [Primary Care Provider] - 1-2 days Decision to Admit Reason: Admit from EC Decision Date: 07/06/20 Decision Time: 09:54
[2020-07-06] MEDS ORDERED: CLINDAMYCIN 900 MG in DEXTROSE 5% IN WATER 50 ML IVPB STA ×2 (08:45)
[2020-07-06] MEDS: SODIUM CHLORIDE 0.9% 1,000 ML IV SCH ×3 (08:46→21:27)
[2020-07-06] MEDS: cefTRIAXone IN SWFI 1,000 MG/10 ML SYRINGE IVP SCH (08:52)
[2020-07-06 09:04] LABS: Basophils % (A) 0 %; Eosinophils # (A) 0.1 k/uL (0-0.7); Eosinophils % (A) 1 %; HCT 50.5 % (39.0-53.0); HGB 17.6 gm/dL (13.0-17.5); Lymphocytes # (A) 0.3 k/uL (1.0-4.8); Lymphocytes % (A) 2 %; MCH 33.5 pg (25.0-35.0); MCHC 34.9 g/dL (31.0-37.0); MCV 95.8 fL (80.0-100.0); Mean Platelet Volume 8.3; Monocytes # (A) 0.6 k/uL (0-1.0); Monocytes % (A) 4 %; Neutrophils # (A) 11.7 k/uL (1.3-7.7); Neutrophils % (A) 92 %; Platelet Count 184 k/uL (150-450); RBC 5.27 m/uL (4.30-5.90); WBC 12.8 k/uL (3.8-10.6)
[2020-07-06] MEDS ORDERED: VANCOMYCIN 2,250 MG in SODIUM CHLORIDE 0.9% 500 ML 500 ML IVPB ONE (09:15)
[2020-07-06 09:16] LABS: Albumin 4.3 g/dL (3.5-5.0); Calcium 9.5 mg/dL (8.4-10.2); Magnesium 1.4 mg/dL (1.6-2.3); Potassium 4.1 mmol/L (3.5-5.1); Total Bilirubin 1.4 mg/dL (0.2-1.3)
[2020-07-06 09:22] LABS: Partial Thromboplastin Time 22.7 sec (22.0-30.0); Prothrombin Time 10.7 sec (9.0-12.0)
[2020-07-06] MEDS ORDERED: NALOXONE 0.4 MG/ML 1 ML VIAL IV PRN ×2 (09:39→12:14)
[2020-07-06] MEDS ORDERED: ACETAMINOPHEN TAB 325 MG TAB PO PRN (09:39)
[2020-07-06] MEDS ORDERED: MELATONIN 3 MG TABLET PO PRN (12:14)
[2020-07-06] MEDS ORDERED: traMADol 50 MG TAB PO PRN (12:14)
--- NOTE | 2020-07-06 12:40 | P.HPIM ---
History of Present Illness H&P Date: 07/06/20 Chief Complaint: LE redness, swelling 59-year-old man with medical history of chronic sinusitis, cellulitis of his lower extremity presented with lower extremity swelling as well as erythema. Patient says that he was fine this morning when he went to work, then noticed that his leg started to become red and swollen and tender. He said that previously when he had cellulitis is placed on oral antibiotics and it got worse over a few days. However, this time the swelling progressed rapidly over several hours to encompass his entire anterior valentin. Given the rapidity of the involvement, patient presented to the emergency room for further evaluation. Patient has no other complaints of fever, chills, nausea, vomiting, chest pain, dyspnea, cough, palpitations, syncope, presyncope, abdominal pain, diarrhea, constipation, dysuria, numbness/weakness of extremities. Area of infection is demarcated with surgical pen and appears to be receding. Patient was seen by infectious disease, initially received vancomycin, ceftriaxone, clindamycin, then was transitioned to cefazolin, clindamycin. Patient received IV fluids in the emergency room and heart rate went down from 140-113. Patient is saturating well on room air without tachypnea. Labs demonstrate mild leukocytosis , elevation of lactic acid to 3.1, which trended to 2.7 after fluids. Review of Systems All Systems reviewed and pertinent positives and negatives noted in HPI, all other symptoms are negative Past Medical History Past Medical History: No Reported History Additional Past Medical History / Comment(s): SINUSITIS, cellulitis left leg History of Any Multi-Drug Resistant Organisms: None Reported Past Surgical History: Tonsillectomy Past Anesthesia/Blood Transfusion Reactions: No Reported Reaction Past Psychological History: No Psychological Hx Reported Smoking Status: Never smoker Past Alcohol Use History: Rare Past Drug Use History: None Reported Medications and Allergies Home Medications Medication Instructions Recorded Confirmed Type No Known Home Medications 07/06/20 07/06/20 History Allergies Allergy/AdvReac Type Severity Reaction Status Date / Time Milk Containing Products AdvReac SINUS Verified 07/06/20 09:24 [Dairy] CONGESTION Physical Exam Osteopathic Statement: *. No significant issues noted on an osteopathic structural exam other than those noted in the History and Physical/Consult. Vitals: Vital Signs Temp Pulse Resp BP Pulse Ox 07/06/20 10:22 113 H 24 126/88 96 07/06/20 09:32 122 H 30 H 133/93 97 07/06/20 08:30 132 H 26 H 114/70 96 07/06/20 08:12 98.7 F 146 H 18 143/102 96 Intake and Output 07/05/20 07/06/20 07/06/20 22:59 06:59 14:59 Other: Weight 131.542 kg Gen: awake, alert HEENT: normocephalic, atraumatic, good hearing acuity, moist mucous membranes Resp: good air exchange, breathing comfortably with no accessory muscle use, right lower lobe crackles, no wheezing CVS: good distal perfusion x 4, tachycardic, regular rhythm, no murmurs GI: soft, NTTP, ND, probably bowel sounds : no SPT, no CVAT, alex catheter not present MSK: Bilateral pitting edema, no clubbing, erythema of the left anterior valentin, with tenderness to palpation in the left posterior calf, diminished pulse on the left side, nonpitting edema of the left side Neuro: non-focal, moving all extremities Psych: cooperative, euthymic mood Results CBC & Chem 7: 07/06/20 08:49 07/06/20 08:49 Labs: Abnormal Lab Results - Last 24 Hours (Table) 07/06/20 07/06/20 07/06/20 Range/Units 08:49 08:49 08:49 WBC 12.8 H (3.8-10.6) k/uL Hgb 17.6 H (13.0-17.5) gm/dL Neutrophils # 11.7 H (1.3-7.7) k/uL Lymphocytes # 0.3 L (1.0-4.8) k/uL Sodium 135 L (137-145) mmol/L Carbon Dioxide 16 L (22-30) mmol/L Creatinine 1.74 H (0.66-1.25) mg/dL Glucose 144 H (74-99) mg/dL Plasma Lactic Acid Dalton 3.1 H* (0.7-2.0) mmol/L Magnesium 1.4 L (1.6-2.3) mg/dL Total Bilirubin 1.4 H (0.2-1.3) mg/dL Assessment and Plan Assessment: Sepsis Left lower extremity cellulitis -Admit to inpatient, telemetry -ID consult, appreciate recommendations -Continue cefazolin, clindamycin -Follow blood cultures -Follow up CRP, procalcitonin -IV fluids -Bilateral lower extremity Doppler arterial to screen for PAD -Left lower extremity duplex venous to rule out DVT Bilateral lower extremity pitting edema Right lower lobe crackles -BNP, pending -Chest x-ray, pending -DuoNeb nebs when necessary DVT prophylaxis with heparin 3 times a day Patient is a full code
--- NOTE | 2020-07-06 12:46 | XR ---
EXAMINATION TYPE: XR chest 1V DATE OF EXAM: 07/06/2020 COMPARISON: 09/04/2016 HISTORY: Cough, shortness of breath TECHNIQUE: Single frontal view of the chest is obtained. FINDINGS: Multiple overlying leads. Low lung volumes. Heart size is enlarged. Mild crowding of the p ulmonary interstitial may represent low lung volumes versus mild pulmonary edema. Minimal patchy inte rstitial opacity at the right lung base may represent developing pneumonitis. Continued follow-up to resolution is recommended. No pleural effusion or pneumothorax. IMPRESSION: 1. Cardiomegaly. 2. Mild pulmonary interstitial prominence may represent low lung volumes versus mild edema. 3. Minimal patchy interstitial opacity at the right lung base may represent developing pneumonitis. C ontinued follow-up to resolution is recommended.
--- NOTE | 2020-07-06 13:37 | US ---
EXAMINATION TYPE: US venous doppler duplex LE LT DATE OF EXAM: 07/06/2020 1:24 PM COMPARISON: NONE CLINICAL HISTORY: r/o DVT. Left lower leg pain, swelling and redness SIDE PERFORMED: Left TECHNIQUE: The lower extremity deep venous system is examined utilizing real time linear array sonog hayes with graded compression, doppler sonography and color-flow sonography. VESSELS IMAGED: Common Femoral Vein Deep Femoral Vein Greater Saphenous Vein * Femoral Vein Popliteal Vein Small Saphenous Vein * Proximal Calf Veins (* superficial vessels) Left Leg: Appears negative for DVT There is normal flow, compressibility, vascular waveforms. IMPRESSION: No evident deep venous thrombosis at or central to the left knee
[2020-07-06] MEDS: CLINDAMYCIN 900 MG in DEXTROSE 5% IN WATER 50 ML IVPB SCH ×2 (15:46)
--- NOTE | 2020-07-06 16:58 | ECHOF ---
Referral Reason:Cardiomegaly MEASUREMENTS -------- HEIGHT: 185.4 cm WEIGHT: 131.5 kg BP: 150/97 IVSd: 1.5 cm (0.6 - 1.1) LVIDd: 5.0 cm (3.9 - 5.3) LVPWd: 1.3 cm (0.6 - 1.1) EDV(Teich): 117 ml IVSs: 2.0 cm LVIDs: 3.5 cm LVPWs: 1.8 cm %IVS Thck: 38 % ESV(Teich): 52 ml EF(Teich): 56 % %FS: 29 % SV(Teich): 65 ml LA Diam: 3.8 cm (2.7 - 3.8) RVIDd: 3.4 cm (< 3.3) Ao Diam: 3.5 cm (2.0 - 3.7) AV Cusp: 2.4 cm (1.5 - 2.6) EPSS: 0.9 cm MV E Wallace: 0.66 m/s MV DecT: 216 ms MV Dec George: 3.1 m/s MV A Wallace: 0.86 m/s MV E/A Ratio: 0.77 MV PHT: 63 ms AV Vmax: 0.93 m/s AV maxP.47 mmHg MV EF SLOPE: 80.48 mm/s (70 - 150) MV EXCURSION: 11.64 mm (> 18.000) FINDINGS -------- Resting tachycardia (HR>100bpm). This was a technically difficult study with suboptimal views. The left ventricular size is normal. There is moderate concentric left ventricular hypertrophy. O verall left ventricular systolic function is normal with, an EF between 55 - 60 %. The right ventricle is mildly enlarged. The right atrium is normal in size. 5.0mg of Lumason was utilized for enhancement of images Interatrial and interventricular septum intact. The aortic valve is trileaflet, and appears structurally normal. No aortic stenosis or regurgitation. There is trace to mild mitral regurgitation. The tricuspid valve appears structurally normal. Trace/mild (physiologic) pulmonic regurgitation. The aortic root size is normal. Normal inferior vena cava with normal inspiratory collapse consistent with estimated right atrial pre ssure of 5 mmHg. There is no pericardial effusion. CONCLUSIONS -------- 1. Resting tachycardia (HR>100bpm). 2. The left ventricular size is normal. 3. There is moderate concentric left ventricular hypertrophy. 4. Overall left ventricular systolic function is normal with, an EF between 55 - 60 %. 5. The right ventricle is mildly enlarged. 6. 5.0mg of Lumason was utilized for enhancement of images 7. The aortic valve is trileaflet, and appears structurally normal. No aortic stenosis or regurgitati on. 8. There is trace to mild mitral regurgitation. 9. Trace/mild (physiologic) pulmonic regurgitation. 10. There is no pericardial effusion. PAROLE DIRECTOR: ANILA Evangelista
[2020-07-06] MEDS: HEPARIN SODIUM,PORCINE/PF 5,000 UNIT/0.5 ML SYRINGE SQ SCH (17:45)
[2020-07-06] MEDS ORDERED: SODIUM CHLORIDE 0.9% 500 ML 500 ML IV ONE (20:46)
[2020-07-06] MEDS: MAGNESIUM SULFATE-D5W PMX 1 GM in DEXTROSE/WATER 1 100ML.BAG IVPB SCH ×2 (21:27→22:47)
[2020-07-07] MEDS: HEPARIN SODIUM,PORCINE/PF 5,000 UNIT/0.5 ML SYRINGE SQ SCH ×3 (00:03→16:46)
[2020-07-07] MEDS: CLINDAMYCIN 900 MG in DEXTROSE 5% IN WATER 50 ML IVPB SCH ×8 (00:37→22:31)
[2020-07-07] MEDS ORDERED: VANCOMYCIN 2,000 MG in SODIUM CHLORIDE 0.9% 500 ML 500 ML IVPB SCH (03:00)
--- NOTE | 2020-07-07 06:16 | CONS ---
CONSULTATION DATE OF SERVICE: 07/06/2020 REASON FOR CONSULTATION: Left lower extremity cellulitis. HISTORY OF PRESENT ILLNESS: The patient is a 59-year-old male with a past medical history significant for episode of left lower extremity cellulitis about 3 years ago. The patient presented to the [facility] ER for evaluation of lower extremity swelling and redness. Apparently, the patient's symptoms started the night before he presented to the hospital. The patient mentioning he did have some swelling to the left leg and subsequently noticed to rapid progression of redness to the left lower extremity. The patient has been complaining of some pain to the left leg to more of a dull aching, at times throbbing, 5 to 6/10 and no radiation. The patient is currently not having open wound or any drainage. The patient presented to the ER with these symptoms. On arrival to the ER, the patient was afebrile. He was slightly tachycardic. Patient did have elevated lactic acid. White count of 12.8, creatinine was mildly elevated at 1.74. The patient did have lower extremity Doppler that has been negative for DVT. The patient was started on vancomycin and did receive a dose of Rocephin. Infectious Disease was consulted for further management of antibiotic therapy for acute left lower extremity cellulitis. REVIEW OF SYSTEMS: Positive points have been mentioned in HPI. Rest of systems are negative. PAST MEDICAL HISTORY: Left lower extremity cellulitis and . PAST SURGICAL HISTORY: Tonsillectomy. SOCIAL HISTORY: Denies smoking. Occasionally drinks. No drug use. FAMILY HISTORY: No pertinent findings noticed. ALLERGIES: MILK CONTAINING PRODUCTS. MEDICATIONS: The patient is currently on Tylenol, vancomycin, Pharmacy to dose, heparin, magnesium, melatonin, Narcan, and Ultram. PHYSICAL EXAMINATION: VITAL SIGNS: Blood pressure is 163/99 with a pulse of 122, temperature 97.5. He is 98% on room air. GENERAL DESCRIPTION: A middle-aged male lying in bed in no distress. No tachypnea or accessory muscles of respiration use. HEENT: Examination shows no pallor or scleral icterus. Oral mucous membrane is dry. NECK: Trachea central, no thyromegaly. LUNGS: Unlabored breathing, clear to auscultation anteriorly. No wheeze or crackle. HEART: S1-S2, regular rate and rhythm. ABDOMEN: Soft, no tenderness. No guarding or rigidity. EXTREMITIES: Left lower extremity with diffuse swelling, redness, slightly warm to touch, currently with no blister formation. No open wounds or any drainage. NEUROLOGICAL: Patient is awake, alert, oriented times three. Mood and affect normal. LABS: BUN of 16, creatinine 1.74. Lactic acid 3.1, repeat is 2.7, hemoglobin 17, white count 12.8. Lower extremity Doppler was negative for DVT. DIAGNOSTIC IMPRESSION: Patient with acute left lower extremity cellulitis with rapid progression within 24 hours is highly suspicious for streptococcal cellulitis. The patient currently with no open wound or evidence of purulence or suspicious for MRSA or any gram-negative infection. PLAN: 1. Discontinue vancomycin. 2. Start the patient on cefazolin 2 gram and clindamycin 900 q.8 hours. 3. Michael the area of redness. 4. We will follow on clinical condition and culture to further adjust medication if needed. Thank you for this consultation. Will follow this patient along with you. MMODL / IJN: [id number] /
[2020-07-07 06:30] LABS: Basophils % (A) 0 %; Eosinophils % (A) 0 %; HCT 45.6 % (39.0-53.0); Lymphocytes # (A) 0.8 k/uL (1.0-4.8); Lymphocytes % (A) 5 %; MCH 32.1 pg (25.0-35.0); MCHC 32.9 g/dL (31.0-37.0); MCV 97.8 fL (80.0-100.0); Mean Platelet Volume 8.4; Monocytes # (A) 0.5 k/uL (0-1.0); Monocytes % (A) 3 %; Neutrophils # (A) 13.7 k/uL (1.3-7.7); Neutrophils % (A) 91 %; Platelet Count 142 k/uL (150-450); RBC 4.66 m/uL (4.30-5.90); RDW 13.9 % (11.5-15.5); WBC 15.2 k/uL (3.8-10.6)
--- NOTE | 2020-07-07 10:15 | P.GSCN ---
History of Present Illness Consult date: 07/07/20 History of present illness: 59-year-old male presented to the emergency department approximately 24 hours ago with complaints of redness around the left valentin. He states that the redness developed quickly over the span of approximately 2 hours. He states that at the same site, approximately 3 years ago, he had an episode of cellulitis that did require antibiotic therapy. He denies any fevers, chills, chest pain or shortness of breath. He complains of some mild tenderness at the site, however no significant pain. The area of cellulitic changes has been marked by the emergency department and after antibiotic therapy, does not appear to be progressing. Review of Systems All systems: negative Past Medical History Past Medical History: No Reported History Additional Past Medical History / Comment(s): SINUSITIS, cellulitis left leg History of Any Multi-Drug Resistant Organisms: None Reported Past Surgical History: Tonsillectomy Past Anesthesia/Blood Transfusion Reactions: No Reported Reaction Past Psychological History: No Psychological Hx Reported Smoking Status: Never smoker Past Alcohol Use History: Rare Past Drug Use History: None Reported Medications and Allergies Home Medications Medication Instructions Recorded Confirmed Type No Known Home Medications 07/06/20 07/06/20 History Allergies Allergy/AdvReac Type Severity Reaction Status Date / Time Milk Containing Products AdvReac SINUS Verified 07/06/20 09:24 [Dairy] CONGESTION Surgical - Exam Osteopathic Statement: *. No significant issues noted on an osteopathic structural exam other than those noted in the History and Physical/Consult. Vital Signs Temp Pulse Resp BP Pulse Ox 98.7 F 146 H 18 143/102 96 07/06/20 08:12 07/06/20 08:12 07/06/20 08:12 07/06/20 08:12 07/06/20 08:12 - General well nourished, no distress - Eyes PERRL - ENT no hearing loss - Neck trachea midline - Respiratory normal respiratory effort - Abdomen Soft, nontender, nondistended, no rebound, guarding - Integumentary Left lower extremity with cellulitic changes and warmth to touch, this area has been demarcated with a marker, +2 pitting edema of left lower extremity, no palpable fluctuance or induration - Psychiatric oriented to time, oriented to person, oriented to place Results - Labs 07/07/20 05:30 05/24/21 08:49 Abnormal Lab Results - Last 24 Hours (Table) 07/06/20 07/06/20 07/06/20 Range/Units 08:49 12:00 15:11 WBC (3.8-10.6) k/uL Plt Count (150-450) k/uL Neutrophils # 11.7 H (1.3-7.7) k/uL Lymphocytes # 0.3 L (1.0-4.8) k/uL Plasma Lactic Acid Dalton 2.7 H* 2.9 H* (0.7-2.0) mmol/L C-Reactive Protein (<1.0) mg/dL 07/06/20 07/06/20 07/07/20 Range/Units 17:05 18:41 05:30 WBC 15.2 H (3.8-10.6) k/uL Plt Count 142 L (150-450) k/uL Neutrophils # 13.7 H (1.3-7.7) k/uL Lymphocytes # 0.8 L (1.0-4.8) k/uL Plasma Lactic Acid Dalton 4.5 H* (0.7-2.0) mmol/L C-Reactive Protein 7.8 H (<1.0) mg/dL Assessment and Plan Plan: 59-year-old male with cellulitis of the left lower extremity. At this point, there is no palpable fluctuance or induration and there is no active drainage. I would recommend continuing antibiotics and continue evaluation of the cellulitic changes. If abscess forms, we'll discuss plan for incision and drainage, however at this time there does not appear to be any significant absce ss likely features. Imaging can also be considered based on evolution of the cellulitic area. We'll continue to provide recommendations based on the patient's clinical progress.
[2020-07-07] MEDS: SODIUM CHLORIDE 0.9% 1,000 ML IV SCH ×2 (10:22→16:47)
--- NOTE | 2020-07-07 10:33 | P.PN ---
Subjective Progress Note Date: 07/07/20 No new complaints today. Continues to have pain in the leg, however, this is improving. Heart rates are improving. Erythema has not gone past the demarcation. Patient is on cefazolin and clindamycin. Objective - Vital Signs Vital signs: Vital Signs Temp 99.6 F 07/07/20 02:00 Pulse 103 H 07/07/20 02:00 Resp 16 07/07/20 02:00 BP 137/83 07/07/20 02:00 Pulse Ox 98 07/06/20 20:00 Intake & Output 07/06/20 07/07/20 07/07/20 18:59 06:59 18:59 Intake Total 2560 Balance 2560 Weight 131.542 kg Intake: Intake, IV Titration 1560 Amount Sodium Chloride 0.9% 1, 1560 000 ml @ 130 mls/hr IV . Q7H42M [facility] Rx#:[id number] Oral 1000 Other: Voiding Method Toilet Urinal # Voids 6 - Exam Gen: awake, alert HEENT: normocephalic, atraumatic, good hearing acuity, moist mucous membranes Resp: good air exchange, breathing comfortably with no accessory muscle use, right lower lobe crackles, no wheezing CVS: good distal perfusion x 4, tachycardic, regular rhythm, no murmurs GI: soft, NTTP, ND, probably bowel sounds : no SPT, no CVAT, alex catheter not present MSK: Bilateral pitting edema, no clubbing, erythema of the left anterior vlaentin, with tenderness to palpation in the left posterior calf, diminished pulse on the left side, nonpitting edema of the left side Neuro: non-focal, moving all extremities Psych: cooperative, euthymic mood - Labs CBC & Chem 7: 07/07/20 05:30 07/06/20 08:49 Labs: Abnormal Lab Results - Last 24 Hours (Table) 07/06/20 07/06/20 07/06/20 Range/Units 12:00 15:11 17:05 WBC (3.8-10.6) k/uL Plt Count (150-450) k/uL Neutrophils # (1.3-7.7) k/uL Lymphocytes # (1.0-4.8) k/uL Plasma Lactic Acid Dalton 2.7 H* 2.9 H* (0.7-2.0) mmol/L C-Reactive Protein 7.8 H (<1.0) mg/dL 07/06/20 07/07/20 Range/Units 18:41 05:30 WBC 15.2 H (3.8-10.6) k/uL Plt Count 142 L (150-450) k/uL Neutrophils # 13.7 H (1.3-7.7) k/uL Lymphocytes # 0.8 L (1.0-4.8) k/uL Plasma Lactic Acid Dalton 4.5 H* (0.7-2.0) mmol/L C-Reactive Protein (<1.0) mg/dL Assessment and Plan Assessment: Sepsis Left lower extremity cellulitis -Admit to inpatient, telemetry -ID consult, appreciate recommendations -Continue cefazolin, clindamycin -Follow blood cultures, NGTD -Follow up CRP = 7.8, procalcitonin = pending -IV fluids -Bilateral lower extremity Doppler arterial to screen for PAD, pending -Left lower extremity duplex venous to rule out DVT, negative Bilateral lower extremity pitting edema Right lower lobe crackles -BNP, low -Chest x-ray, no congestion -DuoNeb nebs when necessary DVT prophylaxis with heparin 3 times a day Patient is a full code
--- NOTE | 2020-07-07 15:10 | PN ---
PROGRESS NOTE DATE OF SERVICE: 07/07/2020 REASON FOR FOLLOWUP: Left lower extremity cellulitis. INTERVAL HISTORY: The patient is currently afebrile. The patient is breathing comfortably. Patient denies having any chest pain or shortness of breath or cough. No abdominal pain or worsening pain to the left leg. Overall pain and discomfort has decreased. PHYSICAL EXAMINATION: Blood pressure 146/82 with a pulse of 102, temperature 98.9. He is 95% on room air. General description is a middle-aged male lying in bed in no distress. RESPIRATORY SYSTEM: Unlabored breathing, clear to auscultation anteriorly. HEART: S1, S2. Regular rate and rhythm. ABDOMEN: Soft, no tenderness. Left leg still has significant swelling and redness, though her redness has not crossed the lines LABS: Hemoglobin 15, white count 15.2. Blood culture has been negative so far. DIAGNOSTIC IMPRESSION AND PLAN: Patient with acute left lower extremity cellulitis in this patient seemed to have shown clinical improvement with cefazolin and to continue. We will apply Pierre wrap to the left leg to keep the swelling down . MMODL / IJN: [id number] /
[2020-07-07 15:48] LABS: African American GFR (CKD) 49.3 (60.0-200.0); Albumin 3.4 g/dL (3.80-4.90); Albumin/Globulin Ratio 1.7 (1.60-3.17); BUN/Creat Ratio 9.41 Ratio (12.00-20.00); Calcium 8.1 mg/dL (8.7-10.3); Magnesium 1.8 mg/dL (1.5-2.4); Non-African American GFR(CKD) 42.6 (60.0-200.0); Potassium 4.3 mmol/L (3.5-5.5); Total Bilirubin 0.8 mg/dL (0.2-1.2); Total Protein 5.4 g/dL (6.2-8.2)
[2020-07-07 16:54] LABS: Hemoglobin A1C 5.7 % (4.0-6.0)
[2020-07-08] MEDS: HEPARIN SODIUM,PORCINE/PF 5,000 UNIT/0.5 ML SYRINGE SQ SCH ×4 (00:22→23:02)
[2020-07-08] MEDS: SODIUM CHLORIDE 0.9% 1,000 ML IV SCH ×4 (00:22→21:16)
--- NOTE | 2020-07-08 09:57 | P.ARTDOP ---
Arterial Doppler LOWER EXTREMITY ARTERIAL DOPPLER: DATE OF SERVICE: 07/06/2020 Reason for study: Left leg cellulitis. Doppler waveforms: Multiphasic bilaterally throughout. Pulse volume recording: []. Pressure gradients: None except the toes on the left. Ankle-brachial indices: Greater than 1 bilaterally. Toe brachial indices: 0.95 on the right, 0.41 on the left Impression: Normal study proximally. There may be some distal disease on the left, but it is mild..
[2020-07-08] MEDS: CLINDAMYCIN 900 MG in DEXTROSE 5% IN WATER 50 ML IVPB SCH ×4 (10:37→15:29)
--- NOTE | 2020-07-08 12:28 | P.PN ---
Subjective Progress Note Date: 07/08/20 No new complaints. pain in leg is improving. Objective - Vital Signs Vital signs: Vital Signs Temp 98.3 F 07/08/20 04:43 Pulse 87 07/08/20 04:43 Resp 18 07/08/20 04:58 BP 144/95 07/08/20 04:43 Pulse Ox 95 07/08/20 04:58 Intake & Output 07/07/20 07/08/20 07/08/20 18:59 06:59 18:59 Intake Total 1170 Balance 1170 Intake: Intake, IV Titration 1170 Amount Sodium Chloride 0.9% 1, 1170 000 ml @ 130 mls/hr IV . Q7H42M [facility] Rx#:[id number] Other: Voiding Method Toilet Toilet Urinal Urinal # Voids 1 4 # Bowel Movements 1 - Exam Gen: awake, alert HEENT: normocephalic, atraumatic, good hearing acuity, moist mucous membranes Resp: good air exchange, breathing comfortably with no accessory muscle use, right lower lobe crackles, no wheezing CVS: good distal perfusion x 4, tachycardic, regular rhythm, no murmurs GI: soft, NTTP, ND, probably bowel sounds : no SPT, no CVAT, alex catheter not present MSK: Bilateral pitting edema, no clubbing, erythema of the left anterior valentin, with tenderness to palpation in the left posterior calf, diminished pulse on the left side, nonpitting edema of the left side Neuro: non-focal, moving all extremities Psych: cooperative, euthymic mood - Labs CBC & Chem 7: 07/07/20 05:30 07/07/20 05:30 Labs: Abnormal Lab Results - Last 24 Hours (Table) 07/07/20 Range/Units 05:30 Carbon Dioxide 19.0 L (21.6-31.8) mmol/L Anion Gap 13.00 H (4.00-12.00) mmol/L Creatinine 1.7 H (0.6-1.5) mg/dL Est GFR (CKD-EPI)AfAm 49.3 L (60.0-200.0) Est GFR (CKD-EPI)NonAf 42.6 L (60.0-200.0) BUN/Creatinine Ratio 9.41 L (12.00-20.00) Ratio Glucose 116 H (70-110) mg/dL Calcium 8.1 L (8.7-10.3) mg/dL Total Protein 5.4 L (6.2-8.2) g/dL Albumin 3.40 L (3.80-4.90) g/dL Microbiology - Last 24 Hours (Table) 07/06/20 08:51 Blood Culture - Preliminary Blood No Growth after 48 hours 07/06/20 08:49 Blood Culture - Preliminary Blood No Growth after 48 hours Assessment and Plan Assessment: Sepsis Left lower extremity cellulitis -Admit to inpatient, telemetry -ID consult, appreciate recommendations -Continue cefazolin, clindamycin -Follow blood cultures, NGTD -Follow up CRP = 7.8, procalcitonin = pending -IV fluids -Bilateral lower extremity Doppler arterial to screen for PAD, possibly mild disease in left lower extremity -Left lower extremity duplex venous to rule out DVT, negative Bilateral lower extremity pitting edema Right lower lobe crackles -BNP, low -Chest x-ray, no congestion -DuoNeb nebs when necessary DVT prophylaxis with heparin 3 times a day Patient is a full code
--- NOTE | 2020-07-08 19:10 | PN ---
PROGRESS NOTE DATE OF SERVICE: 07/08/2020 REASON FOR FOLLOWUP: Left lower extremity cellulitis. HISTORY OF PRESENT ILLNESS: The patient is currently afebrile. Patient is breathing comfortably. The patient denies having any chest pain. No shortness of breath. No cough. No abdominal pain or any worsening left lower extremity. PHYSICAL EXAMINATION: Blood pressure 138/81 with a pulse of 87, temperature 98.9. He is 95% on room air. General description is a middle-aged male lying in bed in no distress. Respiratory system: Unlabored breathing, clear to auscultation anteriorly. Heart: S1, S2. Regular rate and rhythm. ABDOMEN: Soft. No tenderness. Left leg swelling and redness has slightly decreased. LABS: No new labs have been obtained today. Blood culture so far negative. DIAGNOSTIC IMPRESSION AND PLAN: Patient with acute left lower extremity cellulitis. The patient, at this time, to continue cefazolin and clindamycin along with Pierre wrap to keep the swelling down and we will reevaluate the patient tomorrow. MMODL / IJN: [id number] /
[2020-07-09] MEDS: CLINDAMYCIN 900 MG in DEXTROSE 5% IN WATER 50 ML IVPB SCH ×8 (00:07→22:17)
[2020-07-09] MEDS: SODIUM CHLORIDE 0.9% 1,000 ML IV SCH (05:39)
[2020-07-09] MEDS: HEPARIN SODIUM,PORCINE/PF 5,000 UNIT/0.5 ML SYRINGE SQ SCH ×3 (09:59→23:34)
--- NOTE | 2020-07-09 14:07 | P.PN ---
Subjective Progress Note Date: 07/09/20 Patient seen and examined at bedside. States he has had improved pain in the left lower extremity and improved warmth. He has noticed decreased edema with decrease in IV fluids. Objective - Vital Signs Vital signs: Vital Signs Temp 98.3 F 07/09/20 12:23 Pulse 87 07/09/20 12:23 Resp 16 07/09/20 12:23 BP 150/90 07/09/20 12:23 Pulse Ox 94 L 07/09/20 12:23 Intake & Output 07/08/20 07/09/20 07/09/20 18:59 06:59 18:59 Intake Total 1450 940 Balance 1450 940 Intake: Intake, IV Titration 1450 940 Amount Clindamycin 900 mg In 50 50 Dextrose 5% in Water 50 ml @ 50 mls/hr IVPB Q8H [facility] Rx#:[id number] Sodium Chloride 0.9% 1, 1300 840 000 ml @ 130 mls/hr IV . Q7H42M [facility] Rx#:[id number] ceFAZolin 2 gm In Sodium 100 50 Chloride 0.9% 50 ml @ 100 mls/hr IVPB Q8HR [facility] Rx# :[id number] Other: Voiding Method Toilet Toilet Urinal Urinal - Gastrointestinal Gastrointestinal Comment(s): Soft, nontender, nondistended, no rebound, no guarding - Integumentary Integumentary Comment(s): Left lower extremity with 2+ pitting edema, erythema noted at the valentin mildly improved, warm to touch, no fluctuance or induration, no drainable palpable abscess - Musculoskeletal Musculoskeletal: Present: generalized weakness - Psychiatric Psychiatric: Present: A&O x's 3 - Labs CBC & Chem 7: 07/07/20 05:30 07/07/20 05:30 Labs: Microbiology - Last 24 Hours (Table) 07/06/20 08:49 Blood Culture - Preliminary Blood No Growth after 72 hours 07/06/20 08:51 Blood Culture - Preliminary Blood No Growth after 72 hours Assessment and Plan Plan: 59-year-old male with cellulitis of the left lower extremity. At this point, th ere is no palpable fluctuance or induration and there is no active drainage. There appears to be some improvement in the patient's pain and in erythema. There is no palpable abscess to drain. Continue with IV antibiotics and continue medical management.
--- NOTE | 2020-07-09 14:23 | XR ---
EXAMINATION TYPE: XR chest 2V DATE OF EXAM: 07/09/2020 COMPARISON: Chest x-ray 07/06/2020 HISTORY: Shortness of breath TECHNIQUE: Frontal and lateral views of the chest are obtained. FINDINGS: There is no focal air space opacity, pleural effusion, or pneumothorax seen. The cardiac silhouette size is within normal limits. The osseous structures are intact. There are overlying jen ds. There is a spinal curvature, thoracic spondylosis. IMPRESSION: No acute cardiopulmonary process.
--- NOTE | 2020-07-09 17:21 | P.PN ---
Subjective Progress Note Date: 07/09/20 No new complaints today. Pt says that his pain has improved despite there being some redness extending beyond the demarcation. Objective - Vital Signs Vital signs: Vital Signs Temp 98.3 F 07/09/20 12:23 Pulse 87 07/09/20 12:23 Resp 16 07/09/20 12:23 BP 150/90 07/09/20 12:23 Pulse Ox 94 L 07/09/20 12:23 Intake & Output 07/08/20 07/09/20 07/09/20 18:59 06:59 18:59 Intake Total 1450 940 Balance 1450 940 Intake: Intake, IV Titration 1450 940 Amount Clindamycin 900 mg In 50 50 Dextrose 5% in Water 50 ml @ 50 mls/hr IVPB Q8H [facility] Rx#:[id number] Sodium Chloride 0.9% 1, 1300 840 000 ml @ 130 mls/hr IV . Q7H42M [facility] Rx#:[id number] ceFAZolin 2 gm In Sodium 100 50 Chloride 0.9% 50 ml @ 100 mls/hr IVPB Q8HR [facility] Rx# :[id number] Other: Voiding Method Toilet Toilet Urinal Urinal - Exam Gen: awake, alert HEENT: normocephalic, atraumatic, good hearing acuity, moist mucous membranes Resp: good air exchange, breathing comfortably with no accessory muscle use, rig ht lower lobe crackles, no wheezing CVS: good distal perfusion x 4, tachycardic, regular rhythm, no murmurs GI: soft, NTTP, ND, probably bowel sounds : no SPT, no CVAT, alex catheter not present MSK: Bilateral pitting edema, no clubbing, erythema of the left anterior valentin, with tenderness to palpation in the left posterior calf, diminished pulse on the left side, nonpitting edema of the left side Neuro: non-focal, moving all extremities Psych: cooperative, euthymic mood - Labs CBC & Chem 7: 07/07/20 05:30 07/07/20 05:30 Labs: Microbiology - Last 24 Hours (Table) 07/06/20 08:49 Blood Culture - Preliminary Blood No Growth after 72 hours 07/06/20 08:51 Blood Culture - Preliminary Blood No Growth after 72 hours Assessment and Plan Assessment: Sepsis Left lower extremity cellulitis -Admit to inpatient, telemetry -ID consult, appreciate recommendations -Continue cefazolin, clindamycin -Follow blood cultures, NGTD -Follow up CRP = 7.8, procalcitonin = pending -IV fluids -Bilateral lower extremity Doppler arterial to screen for PAD, possibly mild disease in left lower extremity -Left lower extremity duplex venous to rule out DVT, negative Bilateral lower extremity pitting edema Right lower lobe crackles -BNP, low -Chest x-ray, no congestion -DuoNeb nebs when necessary DVT prophylaxis with heparin 3 times a day Patient is a full code
[2020-07-09 20:02] LABS: Glucose,Whole Blood 89 mg/dL (75-99)
[2020-07-09 20:10] VITALS: RESP 18
--- NOTE | 2020-07-10 04:04 | PN ---
PROGRESS NOTE DATE OF SERVICE: 07/09/2020 REASON FOR FOLLOWUP: Left lower extremity cellulitis. INTERVAL HISTORY: The patient is currently afebrile. The patient is breathing comfortably. The patient left leg swelling and discomfort has decreased intensity. The patient denies having any chest pain or cough. No abdominal pain. No diarrhea. PHYSICAL EXAMINATION: Blood pressure 164/98, pulse 80, temperature 98.4. He is 97% on room air. General description is a middle-aged male lying in bed in no distress. Respiratory system: Unlabored breathing, clear to auscultation anteriorly. Heart S1, S2. Regular rate and rhythm. Abdomen soft, no tenderness. Left leg redness has decreased intensity. LABS: No new labs have been obtained today. DIAGNOSTIC IMPRESSION AND PLAN: Patient with acute left lower extremity cellulitis with diffuse swelling and redness, likely streptococcal disease, covered with cefazolin. Continue for another 24 hours. Will repeat his CBC inflammatory markers tomorrow and continue supportive care. MMODL / IJN: [id number] /
[2020-07-10 07:08] LABS: Basophils % (A) 0 %; Eosinophils # (A) 0.2 k/uL (0-0.7); Eosinophils % (A) 4 %; HCT 41.2 % (39.0-53.0); HGB 14.4 gm/dL (13.0-17.5); Lymphocytes # (A) 0.9 k/uL (1.0-4.8); Lymphocytes % (A) 13 %; MCH 33.7 pg (25.0-35.0); MCHC 34.9 g/dL (31.0-37.0); MCV 96.5 fL (80.0-100.0); Mean Platelet Volume 8.8; Monocytes # (A) 0.5 k/uL (0-1.0); Monocytes % (A) 7 %; Neutrophils # (A) 4.8 k/uL (1.3-7.7); Neutrophils % (A) 73 %; Platelet Count 139 k/uL (150-450); RBC 4.26 m/uL (4.30-5.90); RDW 13.3 % (11.5-15.5); WBC 6.6 k/uL (3.8-10.6)
[2020-07-10] MEDS: CLINDAMYCIN 900 MG in DEXTROSE 5% IN WATER 50 ML IVPB SCH ×4 (09:20→15:07)
[2020-07-10] MEDS: HEPARIN SODIUM,PORCINE/PF 5,000 UNIT/0.5 ML SYRINGE SQ SCH ×2 (09:21→16:53)
[2020-07-10 12:45] VITALS: BP 153/93; PULSE 84; TEMP 97.7
[2020-07-10 13:03] VITALS: BMI 38.2
--- NOTE | 2020-07-10 13:18 | P.DS ---
Providers Date of admission: 07/06/20 09:39 Expected date of discharge: 07/10/20 Attending physician: Bhavna Rutherford MD Consults: 07/06/20 09:43 Consult Physician Routine Consulting Provider: Miguel Rai Consult Reason/Comments: Cellulitis Do you want consulting provider notified?: Yes 07/06/20 09:44 Consult Physician Routine Consulting Provider: Navarro Stovall Consult Reason/Comments: Cellulitis Do you want consulting provider notified?: Yes Primary care physician: Stated None Hospital Course: HPI: 59-year-old man with medical history of chronic sinusitis, cellulitis of his lower extremity presented with lower extremity swelling as well as erythema. Patient says that he was fine this morning when he went to work, then noticed that his leg started to become red and swollen and tender. He said that previously when he had cellulitis is placed on oral antibiotics and it got worse over a few days. However, this time the swelling progressed rapidly over several hours to encompass his entire anterior valentin. Given the rapidity of the involvement, patient presented to the emergency room for further evaluation. Patient has no other complaints of fever, chills, nausea, vomiting, chest pain, dyspnea, cough, palpitations, syncope, presyncope, abdominal pain, diarrhea, constipation, dysuria, numbness/weakness of extremities. Area of infection is demarcated with surgical pen and appears to be receding. Patient was seen by infectious disease, initially received vancomycin, ceftriaxone, clindamycin, then was transitioned to cefazolin, clindamycin. Patient received IV fluids in the emergency room and heart rate went down from 140-113. Patient is saturating well on room air without tachypnea. Labs demonstrate mild leukocytosis , elevation of lactic acid to 3.1, which trended to 2.7 after fluids. Hospital Course Sepsis Left lower extremity cellulitis Patient was admitted and started on cefazolin and clindamycin. He was also started on aggressive IV fluids. He was followed for a total of 3 days, with gradual improvement of his cellulitis. He was consulted on by infectious disease as well as surgery whose expertise was appreciated. Patient also had left lower extremity venous and arterial Dopplers done, which were negative for DVT, but did show mild PAD in the left leg, likely at the ankle. Patient's infection improved with cephalexin and clindamycin. He was transitioned to cefazolin on discharge. I recommended he also started baby aspirin daily. He will follow up with infectious disease as well as his primary care provider. Bilateral lower extremity pitting edema Right lower lobe crackles Consideration of heart failure was given, however, chest x-ray was negative for congestion, echo was negative for decreased EF for diastolic dysfunction. I spent 35 minutes coordinating this complex discharge Assessment: Gen: awake, alert HEENT: normocephalic, atraumatic, good hearing acuity, moist mucous membranes Resp: good air exchange, breathing comfortably with no accessory muscle use, right lower lobe crackles, no wheezing CVS: good distal perfusion x 4, tachycardic, regular rhythm, no murmurs GI: soft, NTTP, ND, probably bowel sounds : no SPT, no CVAT, alex catheter not present MSK: Bilateral pitting edema, no clubbing, erythema of the left anterior valentin, with tenderness to palpation in the left posterior calf, diminished pulse on the left side, nonpitting edema of the left side Neuro: non-focal, moving all extremities Psych: cooperative, euthymic mood Patient Condition at Discharge: Good Plan - Discharge Summary Discharge Rx Participant: Yes New Discharge Prescriptions: New Cephalexin [Keflex] 500 mg PO Q6HR 10 Days #40 cap Acetaminophen Tab [Tylenol] 650 mg PO Q6HR PRN tab PRN Reason: Mild Pain Or Fever > 100.5 Discharge Medication List Acetaminophen Tab [Tylenol] 650 mg PO Q6HR PRN tab 07/10/20 [Rx] Cephalexin [Keflex] 500 mg PO Q6HR 10 Days #40 cap 07/10/20 [Rx] Follow up Appointment(s)/Referral(s): None,Stated [Primary Care Provider] - 1-2 days Miguel Rai MD [STAFF PHYSICIAN] - 1 Week Discharge Disposition: HOME SELF-CARE
[2020-07-10 13:46] LABS: African American GFR (CKD) 75.2 (60.0-200.0); Anion Gap 10.5 mmol/L (4.00-12.00); BUN/Creat Ratio 9.17 Ratio (12.00-20.00); Calcium 8.6 mg/dL (8.7-10.3); Carbon Dioxide 22.5 mmol/L (21.6-31.8); Non-African American GFR(CKD) 64.9 (60.0-200.0); Potassium 4.2 mmol/L (3.5-5.5)
--- NOTE | 2020-07-10 15:49 | PN ---
PROGRESS NOTE DATE OF SERVICE: 07/10/2020 REASON FOR FOLLOWUP: Left lower extremity cellulitis. INTERVAL HISTORY: The patient is afebrile. The patient is breathing comfortably. The patient denies having any chest pain or shortness of breath or cough. No abdominal pain. Overall pain and discomfort to the left leg have decreased in intensity. PHYSICAL EXAMINATION: Blood pressure 153/93 with a pulse of 84, temperature 97.7. He is 95% on room air. General description is a middle-aged male lying in bed in no distress. RESPIRATORY SYSTEM: Unlabored breathing. Clear to auscultation anteriorly. HEART: S1, S2. Regular rate and rhythm. ABDOMEN: Soft. No tenderness. Left leg swelling and redness have decreased. LABS: Hemoglobin is 14.2, white count normalized to 6.6, creatinine is 1.2. Blood cultures have been negative. DIAGNOSTIC IMPRESSION AND PLAN: Patient with extensive left lower extremity cellulitis, possible streptococcal disease, clinically improved with clindamycin and cefazolin. Plan to finish therapy with oral Keflex. Prescription sent to Pharmacy. Close outpatient followup. MMODL / IJN: [id number] /
== END 2020-07-10 18:00 | disposition home or self-care (01) | DRG 872 ==
LOC: EC 08:10 → 5NMEDONC 09:39
PROVIDERS: ADMIT Internal Medicine; ATTEND Internal Medicine
DX: A41.9 Sepsis, unspecified organism (principal); L03.116 Cellulitis of left lower limb; A46 Erysipelas; Z20.822 Contact with and (suspected) exposure to COVID-19; J32.9 Chronic sinusitis, unspecified; Z90.89 Acquired absence of other organs; Z91.011 Allergy to milk products
CPT/HCPCS: 36415; 71045; 71046; 80048; 80053; 83036; 83605; 83735; 83880; 85025; 85610; 85652; 85730; 86140; 87040; 87635; 93005; 93306; 93922; 96361; 96365; 96375; 99285